=== PATIENT | female | born 1960 | race Hispanic/Latino ===

== ENCOUNTER 2016-07-28 07:18 | Day surgery (SDC) | payer MEDICARE, BC ==
[2016-07-26 08:57] VITALS: BMI 39.4
[2016-07-28] MEDS ORDERED: Bupivacaine 0.5% Inj(30mL) ONE (07:37)
[2016-07-28] MEDS ORDERED: Lidocaine 1% Inj (20ml) ONE (07:37)
[2016-07-28] MEDS ORDERED: Propofol 10 mg/ml Inj (20 ML) ONE (08:43)
[2016-07-28] MEDS ORDERED: Midazolam 2 MG/2 ML VIAL ONE (08:43)
[2016-07-28] MEDS ORDERED: Succinylcholine 200 mg/10 ml Inj IV ONE (08:44)
[2016-07-28] MEDS ORDERED: ePHEDrine 50 mg/ml Inj ONE ×2 (09:08→10:12)
[2016-07-28] MEDS ORDERED: Phenylephrine 10 mg/ml Inj ONE (10:13)
[2016-07-28] MEDS ORDERED: Neostigmine Methylsulfate 3mg/3ml Syringe IV ONE (10:27)
[2016-07-28] MEDS ORDERED: HYDROmorphone 0.5 mg/0.5 ml ISec IVP PRN (10:48)
--- NOTE | 2016-07-28 10:51 | PCM.SURG1 ---
Surgeon's Initial Post Op Note - Surgeon's Notes Surgeon: Dr. Bowman Medical Billing Supervisor: Dr. Rico PGY2 Type of Anesthesia: General LMA Anesthesia Administered By: Altaf Pre-Operative Diagnosis: Renal Failure Operative Findings: same Post-Operative Diagnosis: same Operation Performed: Left arm radiocephalic AV Fistula (Taye) Specimen/Specimens Removed: none Estimated Blood Loss: EBL {In ML}: 10 Blood Products Given: N/A Drains Used: No Drains Post-Op Condition: Good Date of Surgery/Procedure: 07/28/16 Time of Surgery/Procedure: 10:54
[2016-07-28] MEDS ORDERED: Oxycodone/Acetaminophen 5/325 mg Tab PO ONE (10:56)
[2016-07-28] MEDS ORDERED: Sodium Chloride 0.9% 1,000 ML IV SCH (11:00)
--- NOTE | 2016-07-28 12:16 | OP ---
PROCEDURE DATE: 07/28/2016 PREOPERATIVE DIAGNOSIS: Chronic renal failure. POSTOPERATIVE DIAGNOSIS: Chronic renal failure. PROCEDURE: Left forearm Taye type AV fistula. SURGEON: Rafaela Bowman MD. RIBBON BLOCKER: Jacky. PROCEDURE NOTE: The patient was brought to the OR and placed supine on the OR table. After adequate general anesthesia had been accomplished, the entire left forearm and arm were prepped with ChloraPr ep and draped out as a sterile field. An incision was made at the wrist midway between the cephalic vein and the radial artery. Cephalic vein was of good size, admitting a 3 mm probe easily. The radi al artery was also of good size, admitting a 2.5 mm probe. A 1 inch segment of each was dissected ou t and looped by using vessel loops. All branches of the cephalic vein were ligated and divided. A l ongitudinal arteriotomy and venotomy was made and the radial to cephalic vein anastomosis was perform ed in a [id number] fashion using 6-0 Prolene continuous suture. Upon completion of the anastomosis , the distal cephalic vein was ligated and divided, making this in actuality an end-vein to side radi al artery anastomosis. Good hemostasis was assured with electrocoagulation. The wound was irrigated and closed in 2 layers using 2-0 Monocryl continuous suture for subcutaneous tissue, 4-0 Monocryl torres bcuticular suture for skin. The wound was infiltrated with 0.5% Marcaine and Dermabond was placed ov er the incision. The patient was awakened from general anesthesia and extubated in the OR without co mplication. Prior to leaving the operating room, she was noted to have an audible bruit and her hand is warm and pink with good capillary refill. Rafaela Bowman MD cc: [id number] TT: 07/28/2016 12:16:03 tn
[2016-07-28 14:17] VITALS: O2SAT 99
[2016-07-28 15:21] VITALS: RESP 20; TEMP 97.7
[2016-07-28 15:57] VITALS: BP 168/56; PULSE 59
== END 2016-07-28 15:50 | disposition home or self-care (01) ==
LOC: SDS 07:18
PROVIDERS: ATTEND Surgery Vascular Surgery
DX: N18.6 End stage renal disease (principal)
CPT/HCPCS: 36415; 36818; 84132; J0330; J0690; J1100; J1170; J1644; J2001; J2250; J2370; J2704; J2710; J3010; J7040; J7120

== ENCOUNTER 2016-08-25 06:27 | Day surgery (SDC) | payer MEDICARE, BC ==
[2016-07-26 08:57] VITALS: BMI 39.4
[2016-08-25 07:08] VITALS: O2SAT 99
[2016-08-25] MEDS ORDERED: Propofol 10 mg/ml Inj (20 ML) ONE (07:51)
[2016-08-25] MEDS ORDERED: Lidocaine 2% Inj (20ml) ONE (07:57)
[2016-08-25] MEDS ORDERED: Sodium Chloride 0.9% 1,000 ML IV SCH (09:15)
[2016-08-25 09:57] VITALS: BP 142/62; PULSE 62; RESP 17; TEMP 97.4
== END 2016-08-25 10:35 | disposition home or self-care (01) ==
LOC: ENDO 06:27
PROVIDERS: ATTEND Internal Medicine Gastroenterology
DX: K25.9 Gastric ulcer, unspecified as acute or chronic, without hemorrhage or perforation (principal); K21.9 Gastro-esophageal reflux disease without esophagitis; D50.9 Iron deficiency anemia, unspecified; Z98.84 Bariatric surgery status
CPT/HCPCS: 43239; 82948; 88305; 88312; J2704; J3010; J7040 ×2

== ENCOUNTER 2017-01-01 15:20 | Emergency (ER) | payer MEDICARE, BC ==
[2017-01-01 15:25] VITALS: BMI 39.6
[2017-01-01 15:30] VITALS: RESP 18; TEMP 98.6; O2SAT 98
[2017-01-01 16:34] VITALS: BP 158/65; PULSE 61
--- NOTE | 2017-01-01 17:11 | CT ---
PROCEDURE: CT orbits dated 01/01/2017 HISTORY: Status post fall with right orbital pain. Rule out fracture. COMPARISON: No prior study available for comparison TECHNIQUE: Helical/transaxial CT images of the orbits were obtained. Coronal and sagittal reformats were generated. . Radiation dose: Total exam DLP = 735.66 mGy-cm. This CT exam was performed using one or more of the following dose reduction techniques: Automated exposure control, adjustment of the mA and/or kV according to patient size, and/or use of iterative reconstruction technique. . FINDINGS: The current study reveals no evidence of acute maxillofacial skeletal fracture. The osseous structures appear grossly intact. Bony orbits also intact without evidence of bowel orbital fracture. Globes intact. . Changes of bilateral cataract surgery are noted. There are no retrobulbar hemorrhages or collections. Optic nerves and extraocular musculature unremarkable. Frontal sinuses are underpneumatized/hypoplastic. Remaining visualized paranasal sinuses well-developed and currently well-aerated. There are no fluid levels seen to suggest acute hemorrhage or sinusitis. Very minor mucosal thickening noted within a few superior ethmoid air cells extending into the inferior margin of the hypoplastic right frontal sinus on the left side. Ostiomeatal complexes, the frontal and sphenoethmoidal recesses are patent. PE and. Incidental note made of bilateral palatine tonsil calcifications consistent with sequela of chronic inflammation. Moderate calcified atherosclerotic plaque left carotid bifurcation. Consider followup carotid ultrasound. Additionally, there are soft tissue calcifications seen within facial soft tissues as well as scalp ; rule out underlying IDDM. Note made of mild chronic periventricular white matter ischemic changes. Hyperostosis frontalis interna. IMPRESSION: Impression: No evidence of acute maxillofacial skeletal fractures. The bony orbits intact however at note made of changes of bilateral cataract surgery. Minimal mucosal thickening within few superior ethmoid air cells extending superiorly into the inferior margin of hypoplastic frontal sinus on the left side. Vascular calcifications as above suggesting underlying IDDM however clinical correlation recommended. . Consider followup carotid Doppler ultrasound.
--- NOTE | 2017-01-01 17:28 | ED PDOC ---
Arrival/HPI - General Chief Complaint: Trauma Time Seen by Provider: 01/01/17 15:46 Historian: Patient - History of Present Illness Narrative History of Present Illness (Text): 01/01/17 15:50 A 56 year old female, whose past medical history hypertension, diabetes, renal failure, anemia, hypothyroidism, gastric bypass (09/2009), drug allergy to macrobid and nsaid, presents to the emergency department complaining of bilateral knee and right cheek pain. Patient reports she had trip and fall yesterday. Patient denies any nausea, vomiting, head trauma, LOC, vision changes , dizziness, or any other complaints. PMD: Dr. Cervantes Time/Duration: 24 hours Symptom Onset: Gradual Symptom Course: Unchanged Past Medical History - Provider Review Nursing Documentation Reviewed: Yes - Infectious Disease Hx of Infectious Diseases: None - Cardiac Hx Pacemaker: No - Pulmonary Hx Sleep Apnea: Yes - Neurological Hx Paralysis: No - HEENT Hx Cataracts: Yes Other/Comment: retinopathy - Renal Hx Renal Disorder: Yes Hx Dialysis: No Type of Dialysis Access: L arm Other/Comment: on the verge of dialysis - Endocrine/Metabolic Hx Endocrine Disorders: Yes Hx Diabetes Mellitus Type 1: Yes Hx Hypothyroidism: Yes - Hematological/Oncological Hx Blood Transfusions: Yes (8 UNITS 11/2013) Hx Blood Transfusion Reaction: No - Musculoskeletal/Rheumatological Hx Musculoskeletal Disorders: Yes (KNEES) - Genitourinary/Gynecological Other/Comment: uterine problems - Psychiatric Hx Emotional Abuse: No Hx Physical Abuse: No Hx Substance Use: No - Surgical History Hx Gastric Bypass Surgery: Yes - Anesthesia Hx Anesthesia: Yes Hx Anesthesia Reactions: No - Suicidal Assessment Feels Threatened In Home Enviroment: No Family/Social History - Physician Review Nursing Documentation Reviewed: Yes Family/Social History: No Known Family HX Smoking Status: Never Smoked Hx Alcohol Use: No Hx Substance Use: No Hx Substance Use Treatment: No Allergies/Home Meds Allergies/Adverse Reactions: Allergies nitrofurantoin [From Macrobid] Allergy (Severe, Verified 01/01/17 15:25) ITCHING nitrofurantoin macrocrystalline [From Macrobid] Allergy (Severe, Verified 15:25) ITCHING aspirin Adverse Reaction (Intermediate, Verified 01/01/17 15:25) GI AVOIDS ASPIRIN SINCE BYPASS SX Home Medications: Home Meds Medication Instructions Recorded Confirmed Calcium Carbonate [Calcium] 1,200 mg PO BID 09/27/11 01/01/17 Ergocalciferol (Vitamin D2) 50,000 iu PO FRI 09/27/11 01/01/17 [Vitamin D] Rosuvastatin Calcium [Crestor] 10 mg PO HS 09/27/11 01/01/17 Calcitriol 0.25 mcg PO DAILY 05/13/13 01/01/17 Amlodipine Besylate [Norvasc] 10 mg PO QAM 04/26/15 01/01/17 Carvedilol [Coreg] 12.5 mg PO TID 04/26/15 01/01/17 Docusate Sodium [Stool Softener] 100 mg PO DAILY 06/11/15 01/01/17 Folic Acid 2 mg PO DAILY 06/11/15 01/01/17 Folic Acid/Multivit-Min/Lutein 1 each PO DAILY 08/10/15 01/01/17 [Adult Multivitamin Gummies] Ranitidine HCl [Zantac 150] 150 mg PO DAILY 08/10/15 01/01/17 Sucralfate [Carafate] 1 gm PO PRN PRN 12/06/15 01/01/17 Insulin Human Isophane (NPH) 5 units SC BID 07/26/16 01/01/17 [Novolin N] Levothyroxine [Levoxyl] 0.125 mg PO DAILY 07/26/16 01/01/17 Regan-3 Fatty Acids/Fish Oil [Fish 1,000 mg PO TTS 11/08/16 01/01/17 Oil 1,000 mg Capsule] Pyridoxine [Vitamin B6] 25 mg PO DAILY 11/08/16 01/01/17 Furosemide [Lasix] 40 mg PO DAILY 01/01/17 01/01/17 levoFLOXacin [Levaquin] 1 tab PO DAILY 01/01/17 01/01/17 Review of Systems - Physician Review All systems were reviewed & negative as marked: Yes - Review of Systems Constitutional: Other (head trauma) Eyes: absent: Vision Changes Gastrointestinal: absent: Nausea, Vomiting Musculoskeletal: Other (b/l knee pain and right cheek pain) Neurological: absent: Dizziness, Other (no LOC) Physical Exam Vital Signs Reviewed: Yes Vital Signs Temp Pulse Resp BP Pulse Ox 01/01/17 16:34 61 18 158/65 H 98 01/01/17 15:29 98.6 F 59 L 18 165/68 H 98 Temperature: Afebrile Blood Pressure: Normal Pulse: Regular Respiratory Rate: Normal Appearance: Positive for: Well-Appearing Pain Distress: None Mental Status: Positive for: Alert and Oriented X 3 - Systems Exam Head: Present: Atraumatic, Normocephalic Pupils: Present: PERRL Extroacular Muscles: Present: EOMI Conjunctiva: Present: Normal Mouth: Present: Moist Mucous Membranes Neck: Present: Normal Range of Motion Respiratory/Chest: Present: Clear to Auscultation, Good Air Exchange. No: Respiratory Distress, Accessory Muscle Use Cardiovascular: Present: Regular Rate and Rhythm, Normal S1, S2. No: Murmurs Abdomen: Present: Normal Bowel Sounds. No: Tenderness, Distention, Peritoneal Signs Back: Present: Normal Inspection Upper Extremity: Present: Normal Inspection. No: Cyanosis, Edema Lower Extremity: Present: Other (abrasion to rright anterior aspect of knee) Neurological: Present: GCS=15, CN II-XII Intact, Speech Normal Skin: Present: Warm, Dry, Normal Color. No: Rashes Psychiatric: Present: Alert, Oriented x 3, Normal Insight, Normal Concentration Medical Decision Making ED Course and Treatment: 01/01/17 15:55 Impression: 56 year old female with bilateral knee and right cheek pain. Physical exam shows abrasion to anterior aspect of right knee. Plan: -- Facial CT -- Bilateral Knees X-Ray -- Reassess and disposition Prior Visits: Notes and results from previous visits were reviewed. Patient was last seen in the emergency department on 05/06/2016 for lower abdominal pain with distention and bloated. Patient left AMA. Progress Notes: 01/01/2017 17:[address] FINDINGS: The current study reveals no evidence of acute maxillofacial skeletal fracture. The osseous structures appear grossly intact. Bony orbits also intact without evidence of bowel orbital fracture. Globes intact. . Changes of bilateral cataract surgery are noted. There are no retrobulbar hemorrhages or collections. Optic nerves and extraocular musculature unremarkable. Frontal sinuses are underpneumatized/hypoplastic. Remaining visualized paranasal sinuses well-developed and currently well-aerated. There are no fluid levels seen to suggest acute hemorrhage or sinusitis. Very minor mucosal thickening noted within a few superior ethmoid air cells extending into the inferior margin of the hypoplastic right frontal sinus on the left side. Ostiomeatal complexes, the frontal and sphenoethmoidal recesses are patent. PE and. Incidental note made of bilateral palatine tonsil calcifications consistent with sequela of chronic inflammation. Moderate calcified atherosclerotic plaque left carotid bifurcation. Consider followup carotid ultrasound. Additionally, there are soft tissue calcifications seen within facial soft tissues as well as scalp ; rule out underlying IDDM. Note made of mild chronic periventricular white matter ischemic changes. Hyperostosis frontalis interna. IMPRESSION: No evidence of acute maxillofaical skeletal fractures. The bony orbits intact however at note made of changes of bilateral cataract surgery. Minimal mucosal thickening within few superior ethmoid air cells extending superiorly into the inferior margin of hypoplastic frontal sinus of left side. Vascular calcifications above suggesting underlying IDDM however clinical correlation recommended. Consider followup carotid Doppler ultrasound. Dictator: Natalie Guillen DO - RAD Interpretation Radiology Orders: 01/01/17 15:46 ORBITS/ FACIALS W/O CONTRAST [CT] Stat KNEES BILATERAL [RAD] Stat - Scribe Statement The provider has reviewed the documentation as recorded by the Hugh Piña Provider Scribe Attestation: All medical record entries made by the Tahminaibkayla were at my direction and personally dictated by me. I have reviewed the chart and agree that the record accurately reflects my personal performance of the history, physical exam, medical decision making, and the department course for this patient. I have also personally directed, reviewed, and agree with the discharge instructions and disposition. Disposition/Present on Arrival - Present on Arrival Any Indicators Present on Arrival: No History of DVT/PE: No History of Uncontrolled Diabetes: No Urinary Catheter: No History of Decub. Ulcer: No History Surgical Site Infection Following: Bariatric Surgery - Disposition Have Diagnosis and Disposition been Completed?: Yes Diagnosis: Knee contusion, Facial contusion Disposition: HOME/ ROUTINE Disposition Time: 17:00 Condition: GOOD Discharge Instructions (ExitCare): Knee Pain (ED), RICE Therapy (ED) Additional Instructions: Thank you for letting us take care of you today. The emergency medical care you received today was directed at your acute symptoms. If you were prescribed any medication, please fill it and take as directed. It may take several days for your symptoms to resolve. Return to the Emergency Department if your symptoms worsen, do not improve, or if you have any other problems. Please contact your doctor or call one of the physicians/clinics you have been referred to that are listed on the Patient Visit Information form that is included in your discharge packet. Bring any paperwork you were given at discharge with you along with any medications you are taking to your follow up visit. Our treatment cannot replace ongoing medical care by a primary care provider (PCP) outside of the emergency department. Thank you for allowing the [facility] team to be part of your care today. Follow up with your primary doctor in 2-3 days for re-evaluation and further management. Referrals: Jude Cervantes MD [Primary Care Provider] - Follow up with primary Forms: ADMETA (Icelandic)
--- NOTE | 2017-01-02 08:21 | RAD ---
PROCEDURE: Bilateral Knee Radiographs. HISTORY: s/p trip fall- r/o fx COMPARISON: None. FINDINGS: BONES: No acute fracture or destructive bony lesion identified at either knee. Diffuse osteopenia suggests osteoporosis bilaterally. JOINTS: Joint space narrowing and cortical sclerosis appreciated more so at the medial and lateral femorotibial compartments at the right than on the left at is equivalent at the bilateral patellofemoral articulations. Osteophyte development is prominent at the bilateral lateral femorotibial compartments. SOFT TISSUES: Vascular calcifications are identified posteriorly. JOINT EFFUSION: Right Knee: Moderate suprapatellar bursa effusion is suggested. Left Knee: Borderline suprapatellar bursa effusion. OTHER FINDINGS: None. IMPRESSION: Bilateral advanced osteoarthritis greater the right than left knees. Diffuse osteopenia suggests osteoporosis. No displaced fracture, subluxation or dislocation.
== END 2017-01-01 17:34 | disposition home or self-care (01) ==
LOC: ED 15:20
DX: S80.01XA Contusion of right knee, initial encounter (principal); S00.83XA Contusion of other part of head, initial encounter; W01.0XXA Fall on same level from slipping, tripping and stumbling without subsequent striking against object, initial encounter; Y92.89 Other specified places as the place of occurrence of the external cause

== ENCOUNTER 2017-03-06 11:36 | Day surgery (SDC) | payer MEDICARE, BC ==
[2017-03-02 10:38] VITALS: BMI 35.5
[2017-03-06] MEDS ORDERED: Sodium Chloride 0.9% 250 ML IV SCH (14:45)
[2017-03-06 15:21] VITALS: RESP 18; TEMP 97.6; O2SAT 99
[2017-03-06 15:51] VITALS: PULSE 59
[2017-03-06 16:30] VITALS: BP 162/74
--- NOTE | 2017-03-20 14:46 | PQF GENQUE ---
This form is a permanent part of the medical record Dr. 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 Thank you. Clarification of your documentation is requested to better reflect the severity of illness and intensity of treatment of your patient. Indicators present [] Specify: [] [] Specify: [] [] Specify: [] [] Specify: [] Location in the medical record that reflects the above clinical findings: [] Treatment Provided: [] PT WILL BE SCHEDULED FOR ABDOMINAL HYSTERECTOMY PHYSICIAN'S RESPONSE Based on your medical judgment of the clinical indicators outlined above please clarify the following: [] Practitioner response [] If unable to determine, please check the box, sign and date. Present On Admission (POA) Indicator: [] Present at the time of admission [] Not present at the time of admission [] Clinically Undetermined In responding to this query, please exercise your independent professional judgment. The fact that a question is asked does not imply that any particular answer is desired or expected. Thank you for your clarification on this documentation. If you have any questions please call:[ ] * Thank you, [ ]brian RINCONcommissioner public works LOGAN
--- NOTE | 2017-03-21 22:49 | OP ---
PROCEDURE DATE: 03/06/2017 PREOPERATIVE DIAGNOSES: Postmenopausal bleeding. Patient with previous history of complex atypical endometrial hyperplasia with refusal for surgery. PROCEDURES PERFORMED: Fractional dilatation and curettage, hysteroscopy, and dilation and curettage. SURGEON: Alonzo Stubbs MD TYPE OF ANESTHESIA: General endotracheal. ESTIMATED BLOOD LOSS: Minimal. DESCRIPTION OF PROCEDURE: After informed consent was obtained and signed by the patient, the patient was brought into the operating room. General endotracheal anesthesia was induced. Patient was prepped and draped in usual sterile fashion. Examination under anesthesia was performed, the uterus was found to be approximately 8-9 weeks in size, both adnexa were felt to be negative. Weighted speculum was inserted into the vaginal vault. Anterior lip of the cervix was visualized and grasped with single-tooth tenaculum. Endocervical canal was curetted, and that specimen was sent to the Pathology for examination. Uterus was then sounded to approximately 8-9 cm. Progressive dilatation of the endocervical canal was then performed and an operative hysteroscope was inserted into the cavity. The cavity itself was normal in appearance, though, at the 2 o'clock position of the uterine cavity, there was a proliferation of tissue noted. A curettage of that entire area was taken and that specimen was sent to Pathology for examination. The remainder of the specimen, entire uterus, again was curetted and path report was sent. There was minimal bleeding during the procedure. The patient was awakened, sent to the recovery room in stable condition. Alonzo Stubbs MD
== END 2017-03-06 16:30 | disposition home or self-care (01) ==
LOC: SDS 11:36
PROVIDERS: ATTEND Obstetrics & Gynecology Gynecology
DX: N95.0 Postmenopausal bleeding (principal); N85.02 Endometrial intraepithelial neoplasia [EIN]
CPT/HCPCS: 36415; 58558; 82948; 84132; 88305; J7120

== ENCOUNTER 2017-03-22 08:03 | Day surgery (SDC) | payer MEDICARE, BC ==
[2017-03-02 10:38] VITALS: BMI 35.5
[2017-03-22 08:48] LABS: CALCIUM 9.4 mg/dL (8.4-10.5)
[2017-03-22 08:50] LABS: BASO # 0.06 K/mm3 (0.0-2.0); BASO % 0.6 % (0.0-3.0); EOS # 0.2 (0.0-0.7); EOS % 2.1 % (1.5-5.0); GRAN # 6.27 (1.4-6.5); GRAN % 60.1 % (50.0-68.0); HEMOGLOBIN 10.1 g/dL (12.0-16.0); LYMPH % 28.7 % (22.0-35.0); MEAN CELL VOLUME 90.4 fl (80.0-105.0); MEAN CORPUSCULAR HEMOGLOBIN 27.8 pg (25.0-35.0); MEAN CORPUSCULAR HGB CONC 30.8 g/dl (31.0-37.0); MEAN PLATELET VOLUME 10.8 fl (7.0-11.0); MONO # 0.9 (0.1-0.6); MONO % 8.5 % (1.0-6.0); RBC 3.63 10^6/uL (3.5-6.1); WHITE BLOOD COUNT 10.4 10^3/ul (4.5-11.0)
[2017-03-22 08:55] LABS: INR 1.18 (0.93-1.08); PARTIAL THROMBOPLASTIN TIME 29.5 Seconds (25.1-36.5); PROTHROMBIN TIME 13.6 SECONDS (9.4-12.5)
[2017-03-22 08:58] VITALS: TEMP 97.5
[2017-03-22] MEDS ORDERED: Lidocaine 2% Inj (20ml) ONE (09:05)
[2017-03-22] MEDS ORDERED: Midazolam 2 MG/2 ML VIAL ONE ×3 (09:06→11:56)
[2017-03-22] MEDS ORDERED: HEPARIN SODIUM/NS 2,000 ML IV ONE (09:07)
[2017-03-22] MEDS ORDERED: Oxycodone/Acetaminophen 5/325 mg Tab PO PRN (12:12)
[2017-03-22 13:17] VITALS: BP 151/47; PULSE 59; RESP 20; O2SAT 97
--- NOTE | 2017-03-22 20:35 | VASCULAR ---
PROCEDURE: 1. Left upper extremity AV fistula angiogram 2. Anastomotic angioplasty. HISTORY: End-stage renal disease. Malfunctioning AV access PHYSICIAN(S): Andre Padron MD. TECHNIQUE: The relative risks and indications of the procedure were explained to the patient and consent obtained. The patient was placed supine on the angiography table and the left arm prepped and draped in usual sterile fashion. Conscious sedation and monitoring provided throughout the procedure by a nurse. Under ultrasound guidance, the left radial artery beyond the anastomosis was punctured in a retrograde direction. The guidewire was advanced into fistula. A 5 Slovenian catheter was placed. An overlapping left upper extremity AV fistula angiogram was performed. A 6 Slovenian sheath was placed at the puncture site. 0.014 guidewire was placed across the AV fistula anastomosis. The anastomosis was dilated with a 4 mm x 4 cm balloon. Follow-up angiograms were obtained. The patient tolerated the procedure FINDINGS: The patient's left radial - is patent. There is narrowing of the anastomosis. This was successfully dilated with a 4 mm balloon. The left cephalic vein is somewhat underdeveloped in the forearm. The left cephalic vein above the elbow is atretic. Collaterals to the left basilic system are noted. The left axillary vein, left subclavian vein, left innominate vein, and SVC are widely patent. IMPRESSION: 1. Successful angioplasty of the left radial-cephalic anastomosis. 2. Underdeveloped left cephalic venous outflow. Exercise is encouraged. 3. Widely patent central veins.
== END 2017-03-22 13:50 | disposition home or self-care (01) ==
LOC: SDSVAS 08:03
PROVIDERS: ATTEND Radiology Vascular & Interventional Radiology
DX: T82.858A Stenosis of other vascular prosthetic devices, implants and grafts, initial encounter (principal); N18.6 End stage renal disease; Y83.2 Surgical operation with anastomosis, bypass or graft as the cause of abnormal reaction of the patient, or of later complication, without mention of misadventure at the time of the procedure
CPT/HCPCS: 36415; 36902; 80048; 85025; 85610; 85730; 99152; 99153; C1725; C1769 ×2; C1894; J1644; J2250; J2405; J3010

== ENCOUNTER 2017-03-29 08:49 | Day surgery (SDC) | payer MEDICARE, BC ==
[2017-03-02 10:38] VITALS: BMI 35.5
[2017-03-29 11:03] LABS: BASO # 0.06 K/mm3 (0.0-2.0); BASO % 0.6 % (0.0-3.0); EOS # 0.2 (0.0-0.7); GRAN # 6.05 (1.4-6.5); GRAN % 61.5 % (50.0-68.0); HEMOGLOBIN 9.5 g/dL (12.0-16.0); LYMPH # 2.7 (1.2-3.4); LYMPH % 27.8 % (22.0-35.0); MEAN CELL VOLUME 91.3 fl (80.0-105.0); MEAN CORPUSCULAR HEMOGLOBIN 28.4 pg (25.0-35.0); MEAN CORPUSCULAR HGB CONC 31.1 g/dl (31.0-37.0); MEAN PLATELET VOLUME 10.7 fl (7.0-11.0); MONO # 0.8 (0.1-0.6); MONO % 8.1 % (1.0-6.0); RBC 3.34 10^6/uL (3.5-6.1); RED CELL DISTRIBUTION WIDTH 15.4 % (11.5-14.5); WHITE BLOOD COUNT 9.9 10^3/ul (4.5-11.0)
[2017-03-29 11:15] LABS: INR 1.21 (0.93-1.08); PARTIAL THROMBOPLASTIN TIME 28.9 Seconds (25.1-36.5)
[2017-03-29 11:26] LABS: CALCIUM 9.3 mg/dL (8.4-10.5)
[2017-03-29] MEDS ORDERED: Iodixanol 320 mg/ml 150 ml Bottle IV ONE (12:07)
[2017-03-29] MEDS ORDERED: HEPARIN SODIUM/NS 1,000 ML IV ONE (12:07)
[2017-03-29] MEDS ORDERED: Lidocaine 2% Inj (20ml) ONE (12:07)
[2017-03-29] MEDS ORDERED: Midazolam 2 MG/2 ML VIAL ONE (12:24)
[2017-03-29] MEDS ORDERED: DiphenhydrAMINE 50 mg/ml Inj ONE (12:38)
[2017-03-29] MEDS ORDERED: Oxycodone/Acetaminophen 5/325 mg Tab PO PRN (13:12)
--- NOTE | 2017-03-29 17:29 | VASCULAR ---
PROCEDURE: Ultrasound and fluoroscopic tunneled right IJ dialysis catheter. CLINICAL HISTORY: ESRD malfunctioning left upper extremity AV fistula. Needs catheter PHYSICIAN(S): Andre Padron M.D. TECHNIQUE: The relative risks and indications for the procedure were explained to the patient and informed written consent obtained. The patient was placed supine on the arteriography table and the right neck/chest was prepped and draped in the usual sterile fashion. 1% Xylocaine was used to anesthetize the skin and soft tissues at the puncture site. Conscious sedation and monitoring were provided throughout the procedure by a nurse. Under direct ultrasound guidance, the rightinternal jugular vein was punctured with a micropuncture set. A 0.035 Glidewire was advanced into the IVC. Sequential dilatation was performed with subsequent placement of a 28cm Ramos II catheter with its tip in the right atrium. A retrograde tunnel below the right clavicle was performed. The catheter was trimmed and the hub attached. Both ports aspirate and inject easily. The catheter was secured and a dressing applied. The patient tolerated the procedure well. IMPRESSION: 1. Ultrasound and fluoroscopically placed right IJ tunneled dialysis catheter.
== END 2017-03-29 14:30 | disposition home or self-care (01) ==
LOC: SDS 08:49
PROVIDERS: ATTEND Radiology Vascular & Interventional Radiology
DX: T82.41XA Breakdown (mechanical) of vascular dialysis catheter, initial encounter (principal); I12.0 Hypertensive chronic kidney disease with stage 5 chronic kidney disease or end stage renal disease; N18.6 End stage renal disease; E11.22 Type 2 diabetes mellitus with diabetic chronic kidney disease; Z99.2 Dependence on renal dialysis; Z79.4 Long term (current) use of insulin; Y83.2 Surgical operation with anastomosis, bypass or graft as the cause of abnormal reaction of the patient, or of later complication, without mention of misadventure at the time of the procedure
CPT/HCPCS: 36415; 36558; 76937; 77001; 80048; 85025; 85610; 85730; 99152; C1750; C1769; J0690; J1200; J1644; J2250; J2405; J3010

== ENCOUNTER 2017-11-29 08:13 | Day surgery (SDC) | payer MEDICARE, BC ==
[2017-10-18 11:52] VITALS: BMI 31.6
[2017-11-29 08:52] LABS: BASO # 0.07 K/mm3 (0.0-2.0); EOS # 0.2 (0.0-0.7); EOS % 2.3 % (1.5-5.0); GRAN # 3.38 (1.4-6.5); GRAN % 46.1 % (50.0-68.0); HEMOGLOBIN 13.8 g/dL (12.0-16.0); LYMPH % 41.1 % (22.0-35.0); MEAN CELL VOLUME 93.8 fl (80.0-105.0); MEAN CORPUSCULAR HEMOGLOBIN 30.3 pg (25.0-35.0); MEAN CORPUSCULAR HGB CONC 32.3 g/dl (31.0-37.0); MEAN PLATELET VOLUME 11.5 fl (7.0-11.0); MONO # 0.7 (0.1-0.6); MONO % 9.5 % (1.0-6.0); RBC 4.55 10^6/uL (3.5-6.1); RED CELL DISTRIBUTION WIDTH 14.4 % (11.5-14.5); WHITE BLOOD COUNT 7.3 10^3/ul (4.5-11.0)
[2017-11-29 08:54] VITALS: RESP 18
[2017-11-29 09:02] LABS: INR 1.14; PARTIAL THROMBOPLASTIN TIME 31.9 Seconds (25.1-36.5); PROTHROMBIN TIME 13.1 SECONDS (9.4-12.5)
[2017-11-29 09:04] LABS: CALCIUM 9.4 mg/dL (8.4-10.5)
[2017-11-29] MEDS ORDERED: Lidocaine 2% PF (10 ml) Amp ONE (09:27)
[2017-11-29] MEDS ORDERED: Midazolam 2 MG/2 ML VIAL ONE ×2 (09:59→10:20)
[2017-11-29] MEDS ORDERED: Nitroglycerin 50mg in D5W 50 MG/250 ML BOTTLE IV ONE (09:59)
[2017-11-29] MEDS ORDERED: Iodixanol 320 MG/ML 100 ML BOTTLE IV ONE (09:59)
[2017-11-29 12:11] VITALS: PULSE 62; TEMP 97.6; O2SAT 100
[2017-11-29 12:47] VITALS: BP 108/58
--- NOTE | 2017-11-29 16:58 | VASCULAR ---
PROCEDURE: 1. Left upper extremity AV fistula angiogram 2. Anastomosis angioplasty HISTORY: End-stage renal disease. Malfunctioning AV access PHYSICIAN(S): Andre Padron MD. TECHNIQUE: The relative risks and indications of the procedure were explained to the patient and consent obtained. The patient was placed supine on the angiography table and the left arm prepped and draped in usual sterile fashion. Conscious sedation and monitoring provided throughout the procedure by a nurse. The left arm AV fistula was punctured near the elbow in an retrograde direction with a micropuncture set. A 5 Malaysian catheter was placed. An overlapping left upper extremity AV fistula angiogram was performed. Central venous imaging was obtained. Pressure was applied near the access site and reflux of the arterial anastomosis performed. A 6 Malaysian sheath was placed at the puncture site. The anastomosis was crossed with a 0.014 guidewire. The web-like stenosis at the anastomosis was dilated with 4 and 5 mm balloons. Completion angiograms were obtained. The sheath was removed hemostasis obtained with a purse string suture. The fistula was marked with ultrasound guidance. FINDINGS: The patient's left radial-cephalic fistula is patent. There is a web-like stenosis at the anastomosis which corresponds to the elevated velocities noted on the recent duplex scan. The left cephalic vein in the forearm is fairly well developed. At the elbow, collaterals opacify the left basilic vein. The left cephalic vein is continuous but small in caliber. The left axillary vein, left subclavian vein, left innominate vein, and VC are widely patent. IMPRESSION: 1. Successful dilatation of the web-like stenosis at the anastomosis with 4 and 5 mm balloons 2. Under developed left cephalic vein above the elbow. The primary drainage is through the basilic system. 3. The central veins are widely patent
[2017-11-30] MEDS ORDERED: Propofol 10 mg/ml Inj (20 ML) ONE (14:21)
[2017-11-30] MEDS ORDERED: Etomidate 20 mg/10ml Inj IV ONE (14:22)
== END 2017-11-29 12:45 | disposition home or self-care (01) ==
LOC: SDSVAS 08:13
PROVIDERS: ATTEND Radiology Vascular & Interventional Radiology
DX: T82.41XA Breakdown (mechanical) of vascular dialysis catheter, initial encounter (principal); N18.6 End stage renal disease; E11.22 Type 2 diabetes mellitus with diabetic chronic kidney disease; Z99.2 Dependence on renal dialysis; Z79.4 Long term (current) use of insulin; Y83.2 Surgical operation with anastomosis, bypass or graft as the cause of abnormal reaction of the patient, or of later complication, without mention of misadventure at the time of the procedure
CPT/HCPCS: 36415; 36902; 80048; 85025; 85610; 85730; 99152; 99153; C1725 ×2; C1769 ×2; C1894; J1644; J2250; J2405; J3010; Q9967

== ENCOUNTER 2017-11-30 10:53 | Day surgery (SDC) | payer MEDICARE, BC ==
[2017-11-26 17:30] VITALS: BMI 31.6
[2017-11-30] MEDS ORDERED: Sodium Chloride 0.9% 1,000 ML IV SCH ×2 (11:15→15:00)
[2017-11-30 12:13] VITALS: TEMP 98
[2017-11-30 15:04] VITALS: RESP 16
[2017-11-30 15:34] VITALS: O2SAT 100
[2017-11-30 16:39] VITALS: BP 136/70; PULSE 59
== END 2017-11-30 16:23 | disposition home or self-care (01) ==
LOC: ENDO 10:53 → EDUNIT# 13:45 → ENDO 16:23
PROVIDERS: ATTEND Internal Medicine Gastroenterology
DX: D50.9 Iron deficiency anemia, unspecified (principal); K21.9 Gastro-esophageal reflux disease without esophagitis; K27.7 Chronic peptic ulcer, site unspecified, without hemorrhage or perforation; K29.70 Gastritis, unspecified, without bleeding; Z98.84 Bariatric surgery status; K28.9 Gastrojejunal ulcer, unspecified as acute or chronic, without hemorrhage or perforation
CPT/HCPCS: 43239; 82948; 88305; 88312; 88342; J2001; J2704; J7030; J7040

== ENCOUNTER 2018-01-15 09:38 | Day surgery (SDC) | payer MEDICARE, BC ==
[2018-01-01 13:42] VITALS: BMI 30.4
[2018-01-15] MEDS ORDERED: Lidocaine 2% Inj (20ml) ONE (10:57)
[2018-01-15 10:58] LABS: INR 1.09; PARTIAL THROMBOPLASTIN TIME 29.4 Seconds (25.1-36.5); PROTHROMBIN TIME 12.6 SECONDS (9.4-12.5)
[2018-01-15 11:04] LABS: HEMOGLOBIN 13.8 g/dL (12.0-16.0); MEAN CELL VOLUME 93.5 fl (80.0-105.0); RBC 4.64 10^6/uL (3.5-6.1); WHITE BLOOD COUNT 8.5 10^3/uL (4.5-11.0)
[2018-01-15 11:05] LABS: BASO % 1.1 % (0.0-3.0); CALCIUM 9.7 mg/dL (8.4-10.5); EOS # 0.1 (0.0-0.7); EOS % 1.7 % (1.5-5.0); GRAN # 4.21 (1.4-6.5); GRAN % 49.6 % (50.0-68.0); LYMPH # 3.3 (1.2-3.4); LYMPH % 38.9 % (22.0-35.0); MEAN CORPUSCULAR HEMOGLOBIN 29.7 pg (25.0-35.0); MEAN CORPUSCULAR HGB CONC 31.8 g/dl (31.0-37.0); MEAN PLATELET VOLUME 11.8 fl (7.0-11.0); MONO # 0.7 (0.1-0.6); MONO % 8.7 % (1.0-6.0); RED CELL DISTRIBUTION WIDTH 15.1 % (11.5-14.5)
[2018-01-15 11:06] LABS: BASO # 0.09 K/mm3 (0.0-2.0)
[2018-01-15] MEDS ORDERED: Midazolam 2 MG/2 ML VIAL ONE (11:45)
[2018-01-15 13:13] VITALS: RESP 18; TEMP 97.5
[2018-01-15 13:47] VITALS: BP 105/47; PULSE 78; O2SAT 95
--- NOTE | 2018-01-15 19:17 | VASCULAR ---
PROCEDURE: Removal of tunneled right IJ dialysis catheter. CLINICAL HISTORY: End-stage renal disease. Malfunctioning tunneled right IJ dialysis catheter. Functioning left upper extremity AV access. PHYSICIAN(S): Andre Padron M.D. TECHNIQUE: The relative risks and indications of the procedure were explained to the patient and consent obtained. The patient was placed supine on the arteriogram table and the tunneled right IJ dialysis catheter prepped and draped in the usual sterile fashion. Conscious sedation and monitoring were provided throughout the procedure by nurse. 1% Xylocaine was used to anesthetize skin and soft tissues along the tunnel. The tunnel and cuff were bluntly dissected. The catheter was removed and pressure applied at the venous insertion site. A single interrupted suture was placed at the exit site. The patient tolerated the procedure well. IMPRESSION: 1. Removal of the patient's tunneled right IJ dialysis catheter.
== END 2018-01-15 14:00 | disposition home or self-care (01) ==
LOC: SDS 09:38
PROVIDERS: ATTEND Radiology Vascular & Interventional Radiology
DX: T82.41XA Breakdown (mechanical) of vascular dialysis catheter, initial encounter (principal); N18.6 End stage renal disease; Y83.8 Other surgical procedures as the cause of abnormal reaction of the patient, or of later complication, without mention of misadventure at the time of the procedure
CPT/HCPCS: 36415; 36589; 80048; 85025; 85610; 85730; 99152; 99153; J1644; J2250; J2405; J3010

== ENCOUNTER 2018-02-27 10:32 | Outpatient (CLI) | payer MEDICARE, BC | END 2018-02-27 10:33 | disposition home or self-care (01) | LOC: PAT 10:32 ==

== ENCOUNTER 2018-02-28 10:48 | Outpatient (CLI) | payer MEDICARE, BC | END 2018-02-28 10:49 | disposition home or self-care (01) | LOC: RAD 10:48 ==

== ENCOUNTER 2018-03-05 06:02 | Day surgery (SDC) | payer MEDICARE, BC ==
[2018-02-27 11:13] VITALS: BMI 30.9
[2018-03-05 07:16] LABS: CALCIUM 9.8 mg/dL (8.4-10.5)
[2018-03-05] MEDS ORDERED: cefTRIAXone (Rocephin) 1 gm Inj ONE (07:30)
[2018-03-05] MEDS ORDERED: Propofol 10 mg/ml Inj (20 ML) ONE (07:41)
[2018-03-05] MEDS ORDERED: Lidocaine PF 2% (5 ml) Inj (For Cardiac Arrhy) ONE (07:42)
[2018-03-05] MEDS ORDERED: Iohexol 240 (50 ml) IVP ONE (08:33)
[2018-03-05] MEDS ORDERED: HYDROmorphone 0.5 mg/0.5 ml ISec IVP PRN (08:50)
[2018-03-05] MEDS ORDERED: Iohexol 240 (50 ml) ONE (08:59)
[2018-03-05] MEDS ORDERED: Oxycodone/Acetaminophen 5/325 mg Tab PO PRN (09:11)
[2018-03-05 09:51] VITALS: O2SAT 100
--- NOTE | 2018-03-05 10:35 | RAD ---
Date of service: 03/05/2018 PROCEDURE: Retrograde pyelogram. Fluoroscopy less than 1 hr HISTORY: R/O STONES COMPARISON: TECHNIQUE: Fluoroscopy was provided in the operating room. 11 sec of fluoro time used. 10 images submitted FINDINGS: Both ureters and renal collecting systems are unremarkable with no obstruction or filling defect. IMPRESSION: Negative study
[2018-03-05 10:39] VITALS: BP 102/47; PULSE 56; RESP 16; TEMP 97.6
--- NOTE | 2018-03-18 11:03 | PN ---
DATE: 03/05/2018 IMMEDIATE POSTOPERATIVE NOTE See history and physical and operative note for further details. A very pleasant lady who underwent a cystoscopy, bladder biopsy, and fulguration, and bilateral retrograde pyelogram. She is currently in the recovery room in stable condition. Vital signs within normal limits. The patient does have some blood in the urine. Procedure plan as listed below. We are going to monitor this closely and may decide to insert a Aggarwal catheter. We are going to discuss this further with the patient depending on how she does clinically. At this point, the patient remained stable. She is status post cystoscopy, bladder biopsy, fulguration with the presence of hematuria. Further plans will follow. We will proceed to follow the patient closely. Kieran Oviedo MD
--- NOTE | 2018-03-19 00:44 | OP ---
PROCEDURE DATE: 03/05/2018 PREOPERATIVE DIAGNOSES: Hematuria and voiding dysfunction. POSTOPERATIVE DIAGNOSES: Hematuria and voiding dysfunction, but abnormal bladder mucosa. PROCEDURE: Exam under anesthesia, cystoscopy, bilateral retrograde pyelograms, a bladder biopsy and fulguration. ESTIMATED BLOOD LOSS: Less than 10 mL. COMPLICATIONS: There were no complications. DRAINS: No drains (I specifically did not leave any drains). We discussed the options and see the plans listed below. UROLOGY OPERATIVE FINDINGS: 1. 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 2. The retrograde pyelogram are performed. Bilateral ureteral orifices with clear efflux. I do not see any abnormality within the lining (there does not appear to be any transitional cell carcinoma). We have upper tract imaging to indicate that there does not seem to be any renal cell carcinoma, which is also of great concern to us. So, at this point, we will check this pathology but otherwise seems to be okay. DESCRIPTION OF PROCEDURE: After obtaining informed consent, the patient placed on the table. Routine monitors placed. Timeout was called to confirm patient positioning. Antibiotic prophylaxis used. We adjusted accordingly. Again, she has multiple medical problems. She is an and she is a dialysis patient and we adjust accordingly. We introduced cystoscope and inspected carefully with 30 and 70-degree lens. I do not see any bladder lesions that are polyps that look like cancer, but the whole bladder is generally red. Mucosa is abnormal and multiple pictures were taken and saved to the chart. Specifically, I would say that this a possibility for CIS or just mostly inflammatory from bladder, but does not get a lot of urine to it. Because of this, we did do a biopsy of a random area along the wall of the bladder and we fulgurated copiously to make sure there is no bleeding. Retrograde pyelogram showed essentially normal upper tract. No obvious filing defect within the ureters or the renal pelvis to suggest any transitional cell carcinoma. The bladder was emptied. Cystoscope removed. Exam under anesthesia revealed normal external genitalia. No pelvic or rectal masses. The patient tolerated the procedure without complications. Kieran Oviedo MD
--- NOTE | 2018-03-19 08:28 | HP ---
DATE OF EXAM: 03/05/2018 UROLOGY ADMISSION HISTORY AND PHYSICAL REASON FOR ADMISSION: Hematuria workup. HISTORY OF PRESENT ILLNESS: A very interesting, very pleasant lady. I have to take care of her and her father. I just social note on that. She has hematuria. She also has dialysis. She hardly makes any urine. She does not feel the change, she is to make more urine/water output, but of late it has been less. She has hematuria, I think. We discussed options. She previously had a cystoscopy about 5 years ago or more, maybe even 10 at this point, so we had discussed options and she wants further evaluation. We discussed location and she does not want it to be done in the office. She previously had in the office. SOCIAL HISTORY: She lives alone. She was very uncomfortable with the idea of an office cystoscopy as a general rule. I do remember from previous times, although she is somewhat different now, see below my comment on her physical exam. We discussed it at length and we decided to bring her here to the hospital for cystoscopy with the possibility for a biopsy. PAST MEDICAL AND SURGICAL HISTORY: Very significant. She has renal failure. She is a dialysis patient. More so very significantly she has had weight loss surgery. She has lost a tremendous amount of weight and she has been a physical appearance to different persons. See below listed weight . The other medical history and no other remarkable changes are noted. MEDICATIONS: See chart. REVIEW OF SYSTEMS: Listed above. Relatively positive for various complaints, but nothing major. No night sweats, weight loss, chest pain, constitutional complaints, etc. Socially again, she is responsible to help her father, but otherwise essentially unremarkable. No history of alcohol abuse here. The smoking history is as noted. PHYSICAL EXAMINATION: GENERAL: Well-nourished female, no apparent distress. VITAL SIGNS: Within normal limits. LUNGS: Clear. ABDOMEN: Overall soft and nontender. No flank mass appreciated. PELVIC: . No pelvic or rectal masses. (I do also want to mention she has had previous workup with her [employer] doctor as well). DIAGNOSES: 1. Hematuria. 2. Voiding dysfunction. ASSESSMENT AND PLAN: A very pleasant lady, she is 57 years old. We discussed options. She is also a dialysis patient. We have done upper tract imaging to make sure that there is no malignancy in her [place] kidneys. She apparently is not a good candidate for transplant for now, but as part of her plan, she would like one in the future if she could. Though for now the plan is as follows [facility]; today we are going to bring her to the operating room. We are planning for a cystoscopy, possible biopsy depending on what we find, possible retrograde pyelogram depending on what we find. Further plans will follow, depending on what we find clinically. We got to provide the patient with antibiotic prophylaxis. PLAN: As follows; 1. Cystoscopy. 2. Antibiotic prophylaxis. 3. Retrograde pyelogram. 4. Possible biopsy and fulguration. Further plans will follow clinically. ADDENDUM: See the operative note. We ended up doing a biopsy for abnormal bladder mucosa, significantly abnormal most likely all just inflammatory, but significantly abnormal. There were no complications. See the operative note. Kieran Oviedo MD
== END 2018-03-05 13:15 | disposition home or self-care (01) ==
LOC: SDS 06:02
PROVIDERS: ATTEND Urology
DX: R31.9 Hematuria, unspecified (principal); N32.89 Other specified disorders of bladder
CPT/HCPCS: 36415; 52204; 74420; 80048; 88305; C1758; J0696; J1170; J2405; J2704; J2765; J3010; J7030; J7120; Q9966

== ENCOUNTER 2018-03-19 12:47 | Outpatient (CLI) | payer MEDICARE, BC | END 2018-03-19 12:48 | disposition home or self-care (01) | LOC: LAB 12:47 ==

== ENCOUNTER 2018-04-09 05:05 | Outpatient (CLI) | payer MEDICARE, BC | END 2018-04-09 05:06 | disposition home or self-care (01) | LOC: PET-BROA 05:05 | DX: C54.1 Malignant neoplasm of endometrium (principal) ==

== ENCOUNTER 2018-04-09 13:04 | Outpatient (CLI) | payer MEDICARE, BC | END 2018-04-09 13:05 | disposition home or self-care (01) | LOC: LAB 13:04 | DX: N39.0 Urinary tract infection, site not specified (principal) ==

== ENCOUNTER 2018-04-10 10:31 | Emergency (ER) | payer MEDICARE, BC ==
[2018-04-10 10:31] VITALS: BMI 30.9
[2018-04-10 11:29] VITALS: RESP 18; TEMP 97.7
[2018-04-10 12:21] LABS: VENOUS BLOOD GAS BASE EXCESS 5.7 mmol/L (0.0-2.0); VENOUS BLOOD GAS PO2 30 mm/Hg (30-55); VENOUS BLOOD PH 7.39 (7.32-7.43)
[2018-04-10 12:22] LABS: BASO # 0.04 K/mm3 (0.0-2.0); BASO % 0.5 % (0.0-3.0); EOS # 0.1 (0.0-0.7); HEMOGLOBIN 15.2 g/dL (12.0-16.0); LYMPH # 2.6 (1.2-3.4); LYMPH % 33.3 % (22.0-35.0); MEAN CORPUSCULAR HEMOGLOBIN 30.4 pg (25.0-35.0); MEAN PLATELET VOLUME 11.2 fl (7.0-11.0); MONO # 0.7 (0.1-0.6); RED CELL DISTRIBUTION WIDTH 15.2 % (11.5-14.5); WHITE BLOOD COUNT 7.9 10^3/uL (4.5-11.0)
[2018-04-10 12:31] LABS: INR 1.12; PARTIAL THROMBOPLASTIN TIME 34.5 Seconds (26.9-38.3); PROTHROMBIN TIME 12.6 SECONDS (9.4-12.5)
[2018-04-10 12:32] LABS: ALB/GLOB RATIO 1.3 (1.1-1.8); ALBUMIN 4.3 g/dL (3.0-4.8); CALCIUM 9.7 mg/dL (8.4-10.5)
[2018-04-10 12:55] LABS: TROPONIN I 0.03 ng/mL
--- NOTE | 2018-04-10 13:23 | ED PDOC ---
Arrival/HPI - General Chief Complaint: Abdominal Pain Time Seen by Provider: 04/10/18 11:16 Historian: Patient - History of Present Illness Narrative History of Present Illness (Text): 04/10/18 13:20 57yo female with pmhx of hypertension, Diabetes, ESRD ( dialysis MWF) gastritis, gastric bypass 6yrs ago who present with complaint of abdominal pain x 3days. States she usually eat grounded chicken s/p her gastric bypass, but ate whole chicken 3days ago and feel that she did not digest it well. States she sees Dr. Senior, but couldn't reach him so she came to the ED. States she tried to induce vomiting but couldn't. Reports normal BM yesterday. Denies vomiting, diarrhea, constipation, melena, hematochezia, hematemesis, fever, chills, chest pain, any other complaint. Past Medical History - Provider Review Nursing Documentation Reviewed: Yes - Infectious Disease Hx of Infectious Diseases: None - Cardiac Hx Cardiac Arrhythmia: (SVT) Hx Hypotension: Yes Hx Pacemaker: No - Pulmonary Hx Sleep Apnea: Yes - Neurological Hx Paralysis: No - HEENT Hx Cataracts: Yes Other/Comment: retinopathy - Renal Hx Renal Disorder: Yes Hx Dialysis: Yes (MWF) Type of Dialysis Access: L AV shunt Date of Last Dialysis Treatment: 04/10/18 - Endocrine/Metabolic Hx Endocrine Disorders: Yes Hx Diabetes Mellitus Type 1: Yes Hx Hypothyroidism: Yes - Hematological/Oncological Hx Blood Transfusions: Yes (11/2017) - Musculoskeletal/Rheumatological Hx Musculoskeletal Disorders: Yes - Gastrointestinal Hx Gastrointestinal Ulcer: Yes Other/Comment: Gastric bypass - Genitourinary/Gynecological Other/Comment: uterine cancer - Psychiatric Hx Emotional Abuse: No Hx Physical Abuse: No Hx Substance Use: No - Surgical History Hx Dilation and Curettage: Yes Hx Hysterectomy: Yes Other/Comment: Gastric bypass. Paniculectomy - Anesthesia Hx Anesthesia: Yes Hx Anesthesia Reactions: No Hx Malignant Hyperthermia: No - Suicidal Assessment Feels Threatened In Home Enviroment: No Family/Social History - Physician Review Nursing Documentation Reviewed: Yes Family/Social History: Unknown Family HX Smoking Status: Never Smoked Hx Alcohol Use: No Hx Substance Use: No Hx Substance Use Treatment: No Allergies/Home Meds Allergies/Adverse Reactions: Allergies nitrofurantoin [From Macrobid] Allergy (Severe, Verified 04/10/18 11:20) ITCHING nitrofurantoin macrocrystalline [From Macrobid] Allergy (Severe, Verified 04/10/18 11:20) ITCHING aspirin Adverse Reaction (Intermediate, Verified 04/10/18 11:20) GI AVOIDS ASPIRIN SINCE BYPASS SX sulfamethoxazole [From Bactrim] Adverse Reaction (Unknown, Verified 04/10/18 11:20) WAS TOLD TO AVOID trimethoprim [From Bactrim] Adverse Reaction (Unknown, Verified 04/10/18 11:20) WAS TOLD TO AVOID Home Medications: Home Meds Medication Instructions Recorded Confirmed Ergocalciferol (Vitamin D2) 50,000 iu PO Sun09/27/11 04/11/18 [Vitamin D] Rosuvastatin Calcium [Crestor] 10 mg PO QOTHERDAY 09/27/11 04/11/18 Docusate Sodium [Stool Softener] 1 - 2 tab PO DAILY 06/11/15 04/11/18 Folic Acid 2 mg PO DAILY 06/11/15 04/11/18 Ranitidine HCl [Zantac 150] 150 mg PO DAILY 08/10/15 04/11/18 Insulin Human Isophane (NPH) 8 units SC BID 07/26/16 04/11/18 [Novolin N] Levothyroxine [Levoxyl] 125 mcg PO DAILY 07/26/16 04/11/18 Pyridoxine [Vitamin B6] 100 mg PO DAILY 11/08/16 04/11/18 Calcium Acetate [Phoslo] 667 mg PO WM 03/02/17 04/11/18 Fish Oil/Dha/Epa [Fish Oil 1,200 1 cap PO DAILY 10/18/17 04/11/18 mg Fish Oil] Multivit-Min/Iron/Folic/Vit K1 1 tab PO DAILY 10/18/17 04/11/18 [Centrum Chewable Tablet] Omeprazole 20 mg PO QOTHERDAY 11/30/17 04/11/18 Review of Systems - Physician Review All systems were reviewed & negative as marked: Yes - Review of Systems Constitutional: Normal Eyes: Normal ENT: Normal Respiratory: Normal Cardiovascular: Normal Gastrointestinal: Abdominal Pain. absent: Constipation, Diarrhea, Nausea, Vomiting, Hematochezia, Hematemesis Genitourinary Female: Normal Musculoskeletal: Normal Skin: Normal Neurological: Normal Endocrine: Normal Hemo/Lymphatic: Normal Psychiatric: Normal Physical Exam Vital Signs Reviewed: Yes Vital Signs Temp Pulse Resp BP Pulse Ox 04/10/18 12:30 71 18 118/67 100 04/10/18 11:28 97.7 F 83 18 103/70 98 Temperature: Afebrile Blood Pressure: Normal Pulse: Regular Respiratory Rate: Normal Appearance: Positive for: Well-Appearing, Non-Toxic, Comfortable Pain Distress: None Mental Status: Positive for: Alert and Oriented X 3 - Systems Exam Head: Present: Atraumatic, Normocephalic Pupils: Present: PERRL Extroacular Muscles: Present: EOMI Conjunctiva: Present: Normal Mouth: Present: Moist Mucous Membranes Neck: Present: Normal Range of Motion Respiratory/Chest: Present: Clear to Auscultation, Good Air Exchange. No: Respiratory Distress, Accessory Muscle Use Cardiovascular: Present: Regular Rate and Rhythm, Normal S1, S2. No: Murmurs Abdomen: Present: Tenderness (Mild diffuse tenderness on deep palpation). No: Distention, Peritoneal Signs Back: Present: Normal Inspection Upper Extremity: Present: Normal Inspection. No: Cyanosis, Edema Lower Extremity: Present: Normal Inspection. No: Edema Neurological: Present: GCS=15, CN II-XII Intact, Speech Normal Skin: Present: Warm, Dry, Normal Color. No: Rashes Psychiatric: Present: Alert, Oriented x 3, Normal Insight, Normal Concentration Medical Decision Making ED Course and Treatment: 04/12/18 02:21 PT in ED for stated history. She was not in any distress. EKG NSR @ 69bpm. Prolonged QT N-stemi Labs was ordered and reviewed and Cr was elevated which is chronic, she is a dialysis pt. Potassium was negative She was seen in ED by Dr. Senior who recommends DC and liquid diet. He looked at pt's PET/Ct from the previous day and noticed undigested food. States it usually pass on it's own. Plans to do oupt endoscopy on Sunday. All the result and plan was DW the pt and she verbalized understanding. - Lab Interpretations Lab Results: pO2 30 mm/Hg (30-55) 04/10/18 12:00 VBG pH 7.39 (7.32-7.43) 04/10/18 12:00 VBG pCO2 53.0 (40-60) 04/10/18 12:00 VBG HCO3 32.1 mmol/l (21-28) H 04/10/18 12:00 VBG Total CO2 33.7 mmol.L (22-28) H 04/10/18 12:00 VBG O2 Sat (Calc) 58.4 % (40-65) 04/10/18 12:00 VBG Base Excess 5.7 mmol/L (0.0-2.0) H 04/10/18 12:00 VBG Potassium 4.4 mmol/L (3.6-5.2) 04/10/18 12:00 Sodium 135.0 mmol/L (132-148) 04/10/18 12:00 Chloride 93.0 mmol/L (98-107) L 04/10/18 12:00 Glucose 129 mg/dl (65-105) H 04/10/18 12:00 Lactate 2.1 mmol/L (0.7-2.1) 04/10/18 12:00 FiO2 21.0 % 04/10/18 12:00 PT 12.6 SECONDS (9.4-12.5) H 04/10/18 12:04 INR 1.12 04/10/18 12:04 APTT 34.5 Seconds (26.9-38.3) 04/10/18 12:04 Troponin I 0.03 ng/mL D 04/10/18 12:04 Total Bilirubin 0.8 mg/dL (0.2-1.3) 04/10/18 12:04 AST 29 U/L (14-36) 04/10/18 12:04 ALT 19 U/L (7-56) 04/10/18 12:04 Alkaline Phosphatase 103 U/L (38-126) 04/10/18 12:04 Total Protein 7.6 g/dL (5.8-8.3) 04/10/18 12:04 Albumin 4.3 g/dL (3.0-4.8) 04/10/18 12:04 Globulin 3.3 gm/dL 04/10/18 12:04 Albumin/Globulin Ratio 1.3 (1.1-1.8) 04/10/18 12:04 Amylase 111 U/L (35-125) 04/10/18 12:04 Lipase 192 U/L (23-300) 04/10/18 12:04 - Medication Orders Current Medication Orders: Discontinued Medications Famotidine (Pepcid) 20 mg IVP STAT STA Stop: 04/10/18 11:39 Last Admin: 04/10/18 12:26 Dose: 20 mg IVP Administration Document 04/10/18 12:26 BB (Rec: 04/10/18 12:26 BB [id number]) Charges for Administration # of IVP Administrations 1 Pantoprazole Sodium (Protonix Inj) 40 mg IVP STAT STA Stop: 04/10/18 11:48 Last Admin: 04/10/18 12:26 Dose: 40 mg IVP Administration Document 04/10/18 12:26 BB (Rec: 04/10/18 12:26 BB [id number]) Charges for Administration # of IVP Administrations 1 Disposition/Present on Arrival - Present on Arrival Any Indicators Present on Arrival: No History of DVT/PE: No History of Uncontrolled Diabetes: No Urinary Catheter: No History of Decub. Ulcer: No History Surgical Site Infection Following: Bariatric Surgery - Disposition Have Diagnosis and Disposition been Completed?: Yes Diagnosis: Abdominal pain Disposition: HOME/ ROUTINE Disposition Time: 13:25 Patient Plan: Discharge Condition: STABLE Discharge Instructions (ExitCare): Acute Abdomen (Belly Pain) Additional Instructions: Eat liquid diet and follow up with Dr. Senior on Sunday for endoscopy Return to ED for worsening pain or any other complaint Referrals: Jude Cervantes MD [Primary Care Provider] - Follow up with primary Martha Senior MD [Medical Doctor] - Follow up with primary Forms: [employer] ([place])
[2018-04-10 14:15] VITALS: BP 109/63; PULSE 74; O2SAT 98
--- NOTE | 2018-04-10 18:42 | CARD ---
APPROVED REPORT Date of service: 04/10/2018 EKG Measurement Heart [id number] <Conclusion> Normal sinus rhythm with sinus arrhythmia Prolonged QT Abnormal ECG
== END 2018-04-10 14:17 | disposition home or self-care (01) ==
LOC: ED 10:31
DX: R10.9 Unspecified abdominal pain (principal); I12.0 Hypertensive chronic kidney disease with stage 5 chronic kidney disease or end stage renal disease; N18.6 End stage renal disease; Z99.2 Dependence on renal dialysis; E03.9 Hypothyroidism, unspecified; E10.9 Type 1 diabetes mellitus without complications
CPT/HCPCS: 80053; 82150; 82550; 82803; 83615; 83690; 84484; 85025; 85610; 85730; 87040; 93005; 96374; 96375; 99284; C9113

== ENCOUNTER 2018-04-15 10:43 | Day surgery (SDC) | payer MEDICARE, BC ==
[2018-04-11 17:02] VITALS: BMI 30.8
[~2018-04-15 10:43] MED LIST: Sodium Chloride 0.9% 1,000 ML IV SCH
[2018-04-15] MEDS ORDERED: Propofol 10 mg/ml Inj (20 ML) ONE (13:25)
[2018-04-15 15:28] VITALS: BP 119/51; PULSE 61; RESP 18; TEMP 97.9; O2SAT 100
== END 2018-04-15 15:24 | disposition home or self-care (01) ==
LOC: ENDO 10:43
PROVIDERS: ATTEND Internal Medicine Gastroenterology
DX: K28.9 Gastrojejunal ulcer, unspecified as acute or chronic, without hemorrhage or perforation (principal); Z98.84 Bariatric surgery status
CPT/HCPCS: 43235; 82948; 88305; J2001; J2704; J2765; J7030; J7040

== ENCOUNTER 2018-04-25 14:18 | Outpatient (CLI) | payer MEDICARE, BC | END 2018-04-25 14:19 | disposition home or self-care (01) | LOC: RAD 14:18 ==

== ENCOUNTER 2018-05-13 10:30 | Outpatient (CLI) | payer MEDICARE, BC | END 2018-05-13 10:31 | disposition home or self-care (01) | LOC: RAD 10:30 | DX: C55 Malignant neoplasm of uterus, part unspecified (principal); M85.80 Other specified disorders of bone density and structure, unspecified site ==

== ENCOUNTER 2018-05-14 12:37 | Day surgery (SDC) | payer MEDICARE, BC ==
[2018-05-08 15:06] VITALS: BMI 30.9
[2018-05-14 13:30] LABS: BASO # 0.13 K/mm3 (0.0-2.0); BASO % 1.6 % (0.0-3.0); EOS # 0.2 (0.0-0.7); EOS % 2.3 % (1.5-5.0); HEMOGLOBIN 15.2 g/dL (12.0-16.0); LYMPH # 3.3 (1.2-3.4); LYMPH % 40.4 % (22.0-35.0); MEAN CELL VOLUME 95.8 fl (80.0-105.0); MEAN CORPUSCULAR HEMOGLOBIN 30.5 pg (25.0-35.0); MEAN CORPUSCULAR HGB CONC 31.8 g/dl (31.0-37.0); MEAN PLATELET VOLUME 11.6 fl (7.0-11.0); MONO # 0.5 (0.1-0.6); MONO % 6.2 % (1.0-6.0); RBC 4.99 10^6/uL (3.5-6.1); RED CELL DISTRIBUTION WIDTH 14.8 % (11.5-14.5); WHITE BLOOD COUNT 8.3 10^3/uL (4.5-11.0)
[2018-05-14] MEDS ORDERED: Lidocaine PF 2% (5 ml) Inj (For Cardiac Arrhy) ONE (13:30)
[2018-05-14] MEDS ORDERED: Iodixanol 320 MG/ML 200 ML BOTTLE IV ONE (13:31)
[2018-05-14 13:34] LABS: CALCIUM 10.4 mg/dL (8.4-10.5)
[2018-05-14 13:36] LABS: INR 1.19; PARTIAL THROMBOPLASTIN TIME 37.1 Seconds (26.9-38.3); PROTHROMBIN TIME 13.2 SECONDS (9.4-12.5)
[2018-05-14] MEDS ORDERED: Midazolam 2 MG/2 ML VIAL ONE ×2 (15:39→15:49)
[2018-05-14 17:13] VITALS: BP 104/56; PULSE 64; RESP 20; TEMP 97.5; O2SAT 96
--- NOTE | 2018-05-14 19:54 | VASCULAR ---
PROCEDURE: 1. Left upper extremity AV fistula angiogram HISTORY: End-stage renal disease. Malfunctioning AV access PHYSICIAN(S): Andre Padron MD. TECHNIQUE: The relative risks and indications of the procedure were explained to the patient and consent obtained. The patient was placed supine on the angiography table and the left arm prepped and draped in usual sterile fashion. Conscious sedation and monitoring provided throughout the procedure by a nurse. Sonography of the left AV anastomosis was performed. This revealed a patent anastomosis. Under ultrasound guidance, the proximal left fistula was punctured with a micropuncture set. A 5 [place] catheter was placed. An overlapping left upper extremity AV fistula angiogram was performed. Central venous imaging was obtained. Pressure was applied to the fistula and reflux of the anastomosis performed. The catheter was removed hemostasis obtained with a purse string suture. The patient tolerated the procedure well. FINDINGS: The patient's left radial-cephalic fistula is patent. The anastomosis patent on reflex imaging and ultrasound. The venous drainage is well developed in the left forearm. At the elbow, there is bifurcation with drainage through a atretic left cephalic vein and a more normal appearing left basilic vein. The left axillary vein, left subclavian vein, left innominate vein, and SVC are widely patent. No central stenosis is appreciated IMPRESSION: 1. Patent left upper extremity AV fistula. 2. The venous drainage above the elbow is under developed. 3. The anastomosis is patent. 4. The central veins are patent.
== END 2018-05-14 18:30 | disposition home or self-care (01) ==
LOC: SDSVAS 12:37
PROVIDERS: ATTEND Radiology Vascular & Interventional Radiology
DX: N18.6 End stage renal disease (principal); E11.22 Type 2 diabetes mellitus with diabetic chronic kidney disease; Z99.2 Dependence on renal dialysis; Z79.4 Long term (current) use of insulin
CPT/HCPCS: 36415; 36901; 80048; 85025; 85610; 85730; 99152; J1644; J2250; J2405; J3010; Q9966